=== PATIENT | female | born 1950 | race Caucasian/White ===

== ENCOUNTER → 2017-11-15 | Outpatient (CLI) | payer BC ==
--- NOTE | 2017-11-16 15:39 | MAMMOGRAPHY REPORT ---
BILATERAL DIGITAL SCREENING MAMMOGRAM TOMOSYNTHESIS WITH CAD: 11/15/2017 CLINICAL HISTORY: Routine screening. TECHNIQUE: Breast tomosynthesis in addition to standard 2D mammography was performed. Current study was also evaluated with a Computer Aided Detection (CAD) system. COMPARISON: Comparison is made to exams dated: 10/11/2016 mammogram, 10/07/2015 mammogram, 10/01/2014 mammogram, 09/27/2013 mammogram, 09/07/2012 mammogram, and 09/03/2011 mammogram - [facility]. BREAST COMPOSITION: There are scattered areas of fibroglandular density in both breasts. FINDINGS: A linear scar marker overlies the upper outer quadrant of the left breast. There is expec jose architectural distortion in the approximate 1:00 left breast, denoting an area of prior surgery. There are stable benign-appearing microcalcifications in the lateral left breast, and a few scattere d in the right breast. No new suspicious mass, architectural distortion or cluster of microcalcifica tions is seen. IMPRESSION: ACR BI-RADS CATEGORY 1: NEGATIVE There is no mammographic evidence of malignancy. A 1 year screening mammogram is recommended. The pa tient will receive written notification of the results. Approximately 10% of breast cancers are not detected with mammography. A negative mammographic report should not delay biopsy if a clinically suggestive mass is present. Erica Terry M.D. ay/:11/15/2017 16:06:41 Tentering Machine Feeder: [place] [employer]STA)(Marilyn), [facility] letter sent: Normal 1/2 BI-RADS Code: ACR BI-RADS Category 1: Negative
== END | disposition home or self-care (01) ==
LOC: C.MAMM 08:46
PROVIDERS: ATTEND Internal Medicine
DX: Z12.31 Encounter for screening mammogram for malignant neoplasm of breast (principal)